=== PATIENT | male | born 1950 | race Caucasian/White ===

== ENCOUNTER 2018-03-11 09:31 | Outpatient (CLI) | payer MEDICARE | END 2018-03-11 09:32 | disposition home or self-care (01) | LOC: BICMRI 09:31 | PROVIDERS: ATTEND Orthopaedic Surgery | DX: M19.011 Primary osteoarthritis, right shoulder (principal); M25.411 Effusion, right shoulder ==

== ENCOUNTER 2018-12-13 14:45 | Outpatient (CLI) | payer MEDICARE ==
[~2018-12-13 14:45] MED LIST: Gadobenate Dimeglumine 529 MG/1 ML (20ML VIAL) ONE
--- NOTE | 2018-12-13 18:19 | MRI ---
MRI OF BRAIN WITH AND WITHOUT CONTRAST MRI INTERNAL AUDITORY CANALS WITH AND WITHOUT CONTRAST 12/13/18 INDICATION: Asymmetrical left sensorineural hearing loss. FINDINGS: There is mild parenchymal volume loss with compensatory dilatation of the ventricular system. There i s a cavum septum pellucidum et verge. Partially empty sella is present. There is mild periventricular white matter signal alteration favoring mild chronic ischemic disease. Thin section heavily weighted T2 imaging no discrete mass of either CP angle cistern. No pathologic enhancement of either CP angle cistern or 7th-8th cranial nerve complex. There is no pathologic intra-axial enhancement. IMPRESSION: 1. Findings most suggestive of mild chronic ischemic disease. 2. No evidence of mass or pathologic enhancement of either CP angle cistern. POS: [facility]
== END 2018-12-13 14:46 | disposition home or self-care (01) ==
LOC: BICMRI 14:45
PROVIDERS: ATTEND Specialist
DX: H90.5 Unspecified sensorineural hearing loss (principal)
CPT/HCPCS: 70553; 82565; A9577

== ENCOUNTER 2019-01-12 07:36 | Outpatient (CLI) | payer MEDICARE ==
--- NOTE | 2019-01-12 09:15 | MRI ---
MRI CERVICAL SPINE WITHOUT CONTRAST: INDICATIONS: Cervical radiculopathy. TECHNIQUE: Multiplanar, multisequential images of the cervical spine obtained, according to protocol. FINDINGS: Moderately severe degenerative changes of the cervical spine are noted. Loss of disk space at all le vels. Degenerative osteophytes and degenerative signal changes from the cervical vertebrae. Vertebr al body height is relatively well preserved. There is mild anterior wedging at the C5 and C6 vertebr ae, which appears chronic. C2-C3: No significant abnormality. C3-C4: Posterior disk bulge and spondylosis efface the anterior subarachnoid space. No significant cord impingement. This is slightly more prominent to the right, and there appears to be contact with the traversing right C4 nerve root. There is right foraminal stenosis due to facet and uncinate hyp ertrophy. C4-C5: Mild disk bulge and diffuse spondylosis efface the anterior subarachnoid space and abut the a nterior cord. Bilateral foraminal narrowing due to facet and uncinate hypertrophy. C5-C6: Disk bulge and spondylosis abut and mildly impinge on the anterior cord. Mild bilateral fora radha narrowing due to facet and uncinate hypertrophy. C6-C7: Mild posterior disk bulge and spondylosis flatten the thecal sac and mildly efface the anteri or subarachnoid space. Mild foraminal narrowing due to facet and uncinate hypertrophy. Cord signal appears normally preserved. There is artifact signal seen in the T2 sagittal cord. No e vidence of myelomalacia or edema. IMPRESSION: Moderately severe degenerative disk changes throughout the cervical spine, as described above. Poste rior disk bulge and spondylosis is seen at C3-C4, C4-C5, and C5-C6. There is foraminal encroachment at these levels. There is impingement on the cord at C5-C6, as described. POS: [facility]
== END 2019-01-12 07:37 | disposition home or self-care (01) ==
LOC: TBSIIMAG 07:36
PROVIDERS: ATTEND Neurological Surgery
DX: M47.22 Other spondylosis with radiculopathy, cervical region (principal); M48.8X2 Other specified spondylopathies, cervical region
CPT/HCPCS: 72141

== ENCOUNTER 2019-01-27 06:17 | Day surgery (SDC) | payer MEDICARE ==
[2019-01-26 10:06] VITALS: BMI 29.0
--- NOTE | 2019-01-26 15:18 | HP ---
HISTORY OF PRESENT ILLNESS: Mr. Cummings is a 68-year-old man here for evaluation of significant right-sided C7 radicular pain. He has an MRI scan from [place] that reveals multilevel foraminal stenosis with moderate central canal stenosis at C5-6, but given that his symptoms fit C7 dermatome and does have right-sided foraminal stenosis at this level, this is likely his most significant problem. He has treated this with chiropractic manipulations, Celebrex, and injections with minimal relief and hopes to move forward with surgery as possible. PAST MEDICAL HISTORY: Significant for diabetes, seasonal allergies, kidney stones. PAST SURGICAL HISTORY: L5-S1 anterior-posterior fusion, lithotripsy, herniorrhaphy. CURRENT MEDICATIONS: 1. Tresiba. 2. NovoLog. 3. Ibuprofen. 4. Propranolol ER. 5. Pravastatin. ALLERGIES: NO KNOWN DRUG ALLERGIES. PHYSICAL EXAMINATION: GENERAL: The patient is alert and oriented x3. MUSCULOSKELETAL: Gait is normal. No ataxia. He has positive Spurling maneuver to the right. He has full 5/5 strength in all movements of bilateral upper extremities. ASSESSMENT: Cervical radiculopathy. PLAN: Dr. Mendiola met with the patient, reviewed imaging, advocated for C6-7 ACDF. He explained to the patient the risks, benefits, and alternatives to the procedure. The patient expressed understanding and elected for surgery as discussed. I do believe the patient is mentally competent and capable of making medical decisions for himself and we will move forward with surgery as planned. Job ID: [id number]
[2019-01-27] MEDS ORDERED: Gelfilm 1 EA Packet ONE (07:38)
[2019-01-27] MEDS ORDERED: Thrombin 5000 UNITS/5 ML VIAL ONE (07:38)
[2019-01-27] MEDS ORDERED: Famotidine/PF 20 mg/2ml Vial ONE (07:39)
[2019-01-27] MEDS ORDERED: Fentanyl 100 MCG/2 ML VIAL ONE (07:51)
[2019-01-27 07:52] LABS: Anion Gap 9 mmol/L (10-20); BUN (Urea Nitrogen) 24 mg/dL (8.4-25.7); Calc. Creatinine Clearance 72 mL/min (70-130); Calcium 9.4 mg/dL (7.8-10.44); Carbon Dioxide 30 mmol/L (23-31); Chloride 104 mmol/L (98-107); Estimated GFR-MDRD 61; Glucose 105 mg/dL (80-115); Potassium 4.3 mmol/L (3.5-5.1); Sodium 139 mmol/L (136-145)
[2019-01-27] MEDS ORDERED: Sodium Chloride 0.9% 10 ML ONE (09:49)
[2019-01-27] MEDS ORDERED: Ondansetron PF 4 MG/2 ML Vial ONE (11:28)
[2019-01-27] MEDS ORDERED: ePHEDrine 50 MG/ML VIAL ONE (11:28)
[2019-01-27] MEDS ORDERED: Ketorolac Tromethamine 30 MG/ML VIAL ONE (11:28)
[2019-01-27] MEDS ORDERED: Lidocaine 1% PF 5 ML VIAL ONE (11:28)
[2019-01-27] MEDS ORDERED: Glycopyrrolate 0.2 MG/ML 5 ML SYRINGE ONE (11:28)
[2019-01-27] MEDS ORDERED: PROPOFOL 200 MG/20 ML VIAL ONE (11:28)
[2019-01-27] MEDS ORDERED: Rocuronium Bromide 10 MG/ML (10ML VIAL) ONE (11:28)
[2019-01-27] MEDS ORDERED: Succinylcholine Chloride 20 MG/ML 10 ml SYRINGE FS ONE (12:03)
[2019-01-27] MEDS ORDERED: Tamsulosin HCl 0.4 MG CAP ONE (12:04)
--- NOTE | 2019-01-27 13:03 | OP ---
DATE OF PROCEDURE: 01/27/2019 IMPROVEMENT LEAD: Attila Steven PA-C. INDICATION: Pain. DIAGNOSIS: Cervical radiculopathy. PROCEDURE PERFORMED: Anterior cervical diskectomy and fusion, C6-7. ANESTHESIA: General. DESCRIPTION OF PROCEDURE: The patient was brought into the operating room, placed under general anesthesia. He was placed on table in supine position. A transverse incision was planned over the lateral aspect of the neck on the right. After prepping and draping and after preoperative pause, the incision was created. The underlying platysma muscle was identified and incised. A blunt tissue plane anterior to the sternocleidomastoid muscle was used to gain access to the prevertebral space. After confirming the appropriate level C-arm fluoroscopy, self-retaining retractors were placed and an annulotomy was performed in the C6-C7 disk space. All disk material as well as anterior and posterior osteophytes were removed. After decompressing both exiting nerve roots, a 6 mm lordotic PEEK cage packed with allograft and autograft material was placed in the interbody space. An anterior cervical plate was then fashioned from the spine and secured with total of 4 fixed screws. Midline and lateral structures were inspected and found to be free from significant trauma. The wound was irrigated. Hemostasis was maintained throughout. The wound was then closed in anatomic layers and a pressure dressing was applied. There were no known procedural complications. Job ID: [id number]
[2019-01-27] MEDS ORDERED: Ondansetron ODT 4 MG TAB ONE (13:21)
--- NOTE | 2019-01-27 14:34 | EKG ---
Test Reason : PREOP Blood Pressure : / mmHG Vent. Rate : 059 BPM Atrial Rate : 059 BPM P-R Int : 162 ms QRS Dur : 090 ms QT Int : 418 ms P-R-T Axes : 005 000 039 degrees QTc Int : 413 ms Sinus bradycardia Otherwise normal ECG No previous ECGs available Confirmed by CAMILO ANDINO, DR. Haskins ([id number]) on 01/27/2019 2:34:26 PM Referred By: RUDY Confirmed By:DR. Divine PAGE MD
== END 2019-01-27 14:05 | disposition home or self-care (01) ==
LOC: SDC 06:17
PROVIDERS: ATTEND Neurological Surgery
PROC: 0RG10A0 Fusion of Cervical Vertebral Joint with Interbody Fusion Device, Anterior Approach, Anterior Column, Open Approach (ICD-10-PCS; principal; 2019-01-27)
DX: M48.061 Spinal stenosis, lumbar region without neurogenic claudication (principal); M54.12 Radiculopathy, cervical region; E11.9 Type 2 diabetes mellitus without complications; Z87.442 Personal history of urinary calculi; Z79.4 Long term (current) use of insulin; Z79.1 Long term (current) use of non-steroidal anti-inflammatories (NSAID); Z79.899 Other long term (current) drug therapy; Z98.890 Other specified postprocedural states
CPT/HCPCS: 20930; 20936; 22551; 22845; 22853; 76000; 80048; 82962; 93005; C1713; C1776; 36415; 36416; 93010; J0131; J1885; J2001; J2405; J2704; J3010; J3490; Q0162; S0028

== ENCOUNTER 2022-01-09 09:49 | Outpatient (CLI) | payer MEDICARE | END 2022-01-09 09:50 | disposition home or self-care (01) | LOC: CT 09:49 | PROVIDERS: ATTEND Neurological Surgery | DX: M54.2 Cervicalgia (principal); M54.50 Low back pain, unspecified; Z98.1 Arthrodesis status; M48.061 Spinal stenosis, lumbar region without neurogenic claudication; M47.812 Spondylosis without myelopathy or radiculopathy, cervical region; M50.30 Other cervical disc degeneration, unspecified cervical region | CPT/HCPCS: 72125; 72131 ==